=== PATIENT | male | born 1975 | race Caucasian/White ===

== ENCOUNTER 2024-10-07 21:43 | Emergency (ER) | payer OTHER, SELFPAY ==
[2024-10-07 21:44] VITALS: BP 160/98
--- NOTE | 2024-10-08 00:14 | ED.SKININJ ---
HPI-Injury
General
Chief Complaint: Skin Surface Trauma
Source: patient
Exam Limitations: none
Time Seen by Provider: 10/07/24 23:56
Nursing documentation reviewed up to this point in time: agreed with
History of Present Illness-Injury
Is this injury a work related problem?: No
Is pt an associate of [facility]/[place]?: No
Initial Injury comments:
Right middle finger laceration on a razor blade just prior to arrival last tetanus was 7 years ago patient unable to control the bleeding
Past History
Past History
ED Past Medical History: None
ED Past Surgical History: None
Social History
Tobacco: Non-smoker
Alcohol: None
Drug: None
Living: with family
Employment: Employed
Review of Systems
Review of Systems
All Other Systems: Not applicable
Musculoskeletal: Reports no symptoms
Neurological: Reports no symptoms; Denies weakness or numbness
Phy Exam
Physical Exam
Physical Exam:
Physical Exam
General: no apparent distress, not acutely ill
Heart: s1/s2 regular rate and rhythm, no murmur. equal radial pulses.
Lungs: no acute respiratory distress. clear bilaterally
Neuro: alert and oriented. no focal neurological deficits
Skin: no rash
Psychiatric: well kept. interactive and cooperative
Extremities: Right long finger distal to the DIP in the pulp space 0.5 cm laceration tendon function appears intact
Course
Orders/Labs/Results
Orders:
Orders
10/08/24 00:14
Tetanus/Diphth/Acelpertussis [Adacel] 0.5 ml IM .ONCE ONE
Vital Signs
Initial and Last Documented VS:
Initial Vital Signs
Temp Pulse Resp BP Pulse Ox
98.7 F 89 16 160/98 99
10/07/24 21:44 10/07/24 21:44 10/07/24 21:44 10/07/24 21:44 10/07/24 21:44
Last Documented Vital Signs
Temp Pulse Resp BP Pulse Ox
98.7 F 89 16 160/98 99
10/07/24 21:44 10/07/24 21:44 10/07/24 21:44 10/07/24 21:44 10/07/24 21:44
Procedures
Laceration Closure
Right Finger:
Status of Wound: clean
Size of Wound in cm: 0.5
Description of Wound Edges: sharp
Preparation: other (Tap water)
Anesthesia: 1% Lidocaine
Revision/Debridement: routine- no revision
Wound exploration: explored to base- no FB
Type of Closure: single layer closure
Skin Closure Material: 4-0 nylon
Number of sutures: 1
Digital Block
Location of injection for digital block: base of digit
Indiction for Digital Block: surgical repair
Type of anesthesia: 1% Lidocaine w/o EPI
Complications: none- good anesthesia
MDM/Problems Addressed
Differential Diagnosis Includes:
Laceration, no signs of tendon injury no signs of cellulitis
*Critical Care Note
Total Time (30-74mins, 75-104mins- exclusive of procedures): Not Applicable
ED Attending Note
-
Portions of this chart may have been created with voice recognition software.� Occasional wrong word or��sound alike� substitutions may have occurred due to the inherent limitations of voice recognition software.
Discharge Plan
Departure
Patient Disposition: Home (Routine Discharge)
Date of Disposition: 10/08/24
Time of Disposition: 00:14
Patient with high blood pressure during this ER visit?: No
Condition: Good
Discharge Problem:
Finger laceration
Instructions: Laceration Repair With Stitches (DC)
Referrals:
Yruiy Cullen, [Family Provider] - Follow up in 10 days
Activity Restrictions/Additional Instructions:
Stitches out in 7 to 10 days
Interventions
Interventions:
*Risk Screen - Suicide Last Done: 10/07/24 21:44
*General Assessment Last Done: 10/07/24 21:44
*Neglect/Abuse Screening Last Done: 10/07/24 21:44
*ED COVID-19 Vaccine History Last Done: 10/07/24 21:44
ED-Skin Assessment Last Done: 10/08/24 00:03
Discharge Date and Time
Print Language: ESTONIAN
[2024-10-08 00:49] VITALS: BP 140/97
== END 2024-10-08 00:49 | disposition home or self-care (01) ==
LOC: EMR 21:43
PROVIDERS: EMERGENCY PHYSICIAN Emergency Medicine; FAMILY PHYSICIAN Family Medicine
DX: S61.212A Laceration without foreign body of right middle finger without damage to nail, initial encounter (principal); W45.8XXA Other foreign body or object entering through skin, initial encounter
CPT/HCPCS: 99282; 12001; 90715